=== PATIENT | female | born 2000 | race Caucasian/White ===

== ENCOUNTER 2024-01-25 00:28 | Emergency (ER) | payer OTHER, SELFPAY ==
[2024-01-25 00:31] VITALS: BP 125/75; PULSE 94; RESP 16; TEMP 36.4; O2SAT 97
[2024-01-25 00:46] LABS: Basophils Percent Auto 0.3 % (0.2-1.2); Eosinophils Absolute Auto 0.1 K/mm3 (0-0.3); Hematocrit 40.4 % (37.0-47.0); Hemoglobin 13.5 g/dL (12.0-15.0); Immature Granulocyte Absolute 0.05 K/mm3 (0.00-0.031); Immature Granulocyte Percent A 0.5 % (0-0.5); Lymphocytes Absolute Auto 2.02 K/mm3 (0.9-3.2); Lymphocytes Percent Auto 18.6 % (18.3-44.2); Mean Corpuscular HGB Conc 33.4 g/dl (32-36); Mean Corpuscular Hemoglobin 28.5 pg (26-34); Mean Corpuscular Volume 85.2 fl (80-100); Mean Platelet Volume 8.7 fl (7.4-10.4); Monocytes Absolute Auto 0.7 K/mm3 (0.1-0.6); Monocytes Percent Auto 6.5 % (2.6-8.5); Neutrophils Percent Auto 73.1 % (45.5-73.1); Platelet Count Result 346 k/mm3 (150-375); Red Blood Count 4.74 M/mm3 (4.2-5.4); Red Cell Distribution Width 13.1 % (11.5-14.5); White Blood Count 10.9 K/mm3 (4.5-10.0)
[2024-01-25 00:56] LABS: BEDSIDEPREGUCG Negative (Negative)
[2024-01-25 01:03] LABS: Alanine Aminotransferase 21 U/L (6-35); Albumin Level 4.9 g/dL (3.5-5.1); Alkaline Phosphatase 112 U/L (38-126); Anion Gap 12 mmol/L (4-12); Aspartate Amino Transferase 29 U/L (14-36); Bilirubin,Total 0.8 mg/dL (0.2-1.3); Blood Urea Nitrogen 11 mg/dL (7-17); Calcium 9.5 mg/dL (8.4-10.2); Carbon Dioxide 20 mmol/L (22-30); Chloride 104 mmol/L (98-107); Estimated CRCL calculation 193 ml/min; Estimated Glomerular Filt Rate > 60; Glucose 96 mg/dL (65-110); Lipase 63 U/L (23-300); Sodium 136 mmol/L (137-145)
[2024-01-25 01:09] LABS: Add Urine Microscopic? YES; Appearance Urine Cloudy (Clear); Bacteria Urine 2+ /hpf; Bilirubin Urine Negative (Negative); Blood Urine 2+ (Negative); Color Urine Dark Yellow (Yellow); Glucose Urine UA Negative (Negative); Ketones Urine 2+ mg/dL (Negative); Leukocyte Esterase Ur Negative LEU/UL (Negative); Need Manual Microscopic Reviewed; Nitrate Urine Negative (Negative); Protein Urine 1+ mg/dL (Negative); Specific Grav Ur 1.028 (1.001-1.035); Squamous Epithelial Cell Urine Many /hpf (Few); WBC Urine 0-5 /hpf (0-3); pH Urine 5.5 (5.0-9.0)
[2024-01-25] MEDS: SODIUM CHLORIDE 0.9% IV 1,000 ML 999 ML IV CONT (01:59)
[2024-01-25] MEDS: diphenhydrAMINE HCl INJ 50 MG/ML VIAL 25 MG IV PUSH (01:59)
[2024-01-25] MEDS: PROCHLORPERAZINE EDISYLATE 10 MG/2 ML VIAL IV PUSH (02:00)
--- NOTE | 2024-01-25 03:24 | ED.GENADULT ---
HPI - General Adult General Chief complaint: Nausea/Vomiting/Diarrhea Stated complaint: took semaglutide, online rx Time Seen by Provider: 01/25/24 01:02 History of Present Illness HPI narrative: Patient is a 23-year-old female who presents emergency department with chief complaint of nausea vomiting. Patient reports that she started Ozempic and reports that she started having multiple episodes of nausea vomiting patient reports he has not been able to keep anything down today reports that she has some cramping feeling in her abdomen. The patient denies fever Related Data Allergies Allergy/AdvReac Type Severity Reaction Status Date / Time No Known Allergies Allergy Verified 01/25/24 00:34 Review of Systems Review of Systems: A 10 system review of systems was completed on the patient and is negative except for what is stated in the HPI. Nursing and ancillary documentation was reviewed. Exam Narrative: GENERAL: Well-appearing, well-nourished, and in no acute distress. HEAD: Normocephalic, atraumatic. EYES: PERRLA and EOMI. ENT: Nares clear, no rhinorrhea or epistaxis. Mucous membranes moist. NECK: Supple. CHEST: Clear to auscultation. No respiratory distress. HEART: Regular rate and rhythm. No murmur heard. Normal peripheral pulses. ABDOMEN: Soft, nontender, nondistended, normal active bowel sounds. EXTREMITIES: Normal range of motion. No edema. SKIN: Warm, dry, no rash. NEURO: No focal deficits. Alert and oriented x3. PSYCH: Normal mood and affect. Course Vital Signs Vital signs: Vital Signs Temperature 36.4 C 01/25/24 00:31 Pulse Rate 94 01/25/24 00:31 Respiratory Rate 16 01/25/24 00:31 Blood Pressure 125/75 01/25/24 00:31 Pulse Oximetry 97 01/25/24 00:31 Oxygen Delivery Room Air 01/25/24 00:31 Temperature 36.4 C 01/25/24 00:31 Pulse Rate 94 01/25/24 00:31 Respiratory Rate 16 01/25/24 00:31 Blood Pressure 125/75 01/25/24 00:31 Pulse Oximetry 97 01/25/24 00:31 Oxygen Delivery Room Air 01/25/24 00:31 Medical Decision Making [facility] Narrative Medical decision making narrative: Differential diagnosis includes medication induced nausea vomiting, gastroenteritis, viral illness Laboratory studies were obtained on the patient showed a CBC with white count 10.9 electrolytes within normal limits liver enzymes are no full urinalysis showed no evidence UTI Patient received IV fluids and antiemetics and is feeling much better and would like to go home now patient is able tolerate p.o. Vital Signs Vital Signs: Vital Signs Temperature 36.4 C 01/25/24 00:31 Pulse Rate 94 01/25/24 00:31 Respiratory Rate 16 01/25/24 00:31 Blood Pressure 125/75 01/25/24 00:31 Pulse Oximetry 97 01/25/24 00:31 Oxygen Delivery Room Air 01/25/24 00:31 Temperature 36.4 C 01/25/24 00:31 Pulse Rate 94 01/25/24 00:31 Respiratory Rate 16 01/25/24 00:31 Blood Pressure 125/75 01/25/24 00:31 Pulse Oximetry 97 01/25/24 00:31 Oxygen Delivery Room Air 01/25/24 00:31 Lab Data 01/25/24 00:40 01/25/24 00:40 Labs: Lab Results 01/25/24 01/25/24 Range/Units 00:40 00:54 WBC 10.9 H (4.5-10.0) K/mm3 RBC 4.74 (4.2-5.4) M/mm3 Hgb 13.5 (12.0-15.0) g/dL Hct 40.4 (37.0-47.0) % MCV 85.2 (80-100) fl MCH 28.5 (26-34) pg MCHC 33.4 (32-36) g/dl RDW 13.1 (11.5-14.5) % Plt Count 346 (150-375) k/mm3 MPV 8.7 (7.4-10.4) fl Immature Gran % (Auto) 0.5 (0-0.5) % Neut % (Auto) 73.1 (45.5-73.1) % Lymph % (Auto) 18.6 (18.3-44.2) % Hinds % (Auto) 6.5 (2.6-8.5) % Eos % (Auto) 1.0 (0-4.4) % Baso % (Auto) 0.3 (0.2-1.2) % Lymph # (Auto) 2.02 (0.9-3.2) K/mm3 Hinds # (Auto) 0.7 H (0.1-0.6) K/mm3 Eos # (Auto) 0.1 (0-0.3) K/mm3 Baso # (Auto) 0.0 (0.0-0.1) K/mm3 Abs Immat Gran (auto) 0.05 H (0.00-0.031) K/mm3 Absolute Neuts (auto) 8.0 H (1.3-6.7) K/mm3
[2024-01-25 03:34] VITALS: BP 121/76; PULSE 77; RESP 17; O2SAT 96
== END 2024-01-25 03:36 | disposition home or self-care (01) ==
PROVIDERS: Emergency Provider Emergency Medicine
DX: R11.2 Nausea with vomiting, unspecified (principal); Z79.85 Long-term (current) use of injectable non-insulin antidiabetic drugs
CPT/HCPCS: 36415; 80053; 81001; 81025; 83690; 85025; 96361; 96374; 96375; 99284; J0780; J1200; J7030